=== PATIENT | female | born 1975 | race Caucasian/White ===

== ENCOUNTER 2017-12-05 09:30 | Emergency (ER) | payer MEDICAID ==
[~2017-12-05] VITALS: Ht 165.1 cm; Wt 83.2 kg
[2017-12-05 09:51] VITALS: BP 100/75
== END 2017-12-05 10:29 | disposition home or self-care (01) ==
LOC: ED 10:15
DX: F31.9 Bipolar disorder, unspecified (principal); Z76.0 Encounter for issue of repeat prescription
CPT/HCPCS: 99283

== ENCOUNTER 2018-01-07 16:13 | Emergency (ER) | payer MEDICAID ==
[~2018-01-07] VITALS: Ht 165.1 cm; Wt 80.0 kg
[2018-01-07] MEDS ORDERED: ONDANSETRON 2MG/ML, 2ML IVPush ONE (16:30)
[2018-01-07] MEDS ORDERED: SODIUM CHLORIDE 0.9% 1,000ML IVBOLUS ONE ×2 (16:30→17:00)
[2018-01-07 16:44] LABS: BASOPHILS # (AUTO) 0.05 x10^3/uL (0-0.1); BASOPHILS % (AUTO) 1 % (0-1); EOSINOPHILS # (AUTO) 0.23 x10^3/uL (0-0.4); EOSINOPHILS % (AUTO) 3 % (1-7); LYMPHOCYTES % (AUTO) 34 % (22-44); MD NO; MEAN CORPUSCULAR HEMOGLOBIN 30.8 pg (27.0-34.8); MEAN CORPUSCULAR HGB CONC 33.5 g/dL (32.4-35.8); MEAN CORPUSCULAR VOLUME 91.8 fL (80-100); MEAN PLATELET VOLUME 8.9 fL (7.4-10.4); MONOCYTES # (AUTO) 0.36 x10^3/uL (0.2-0.8); MONOCYTES % (AUTO) 5 % (2-9); NEUTROPHILS # (AUTO) 4.19 x10^3/uL (1.8-6.8); NEUTROPHILS % (AUTO) 57 % (42-75); PLATELET COUNT 305 x10^3/uL (130-400); RED CELL DISTRIBUTION WIDTH 15.2 % (9.6-15.2)
[2018-01-07 16:51] LABS: ALANINE AMINOTRANSFERASE 27 U/L (12-78); ALBUMIN 4.1 g/dL (3.4-5.0); ANION GAP 8 mmol/L (5-15); CHLORIDE 113 mmol/L (98-107)
[2018-01-07 16:56] LABS: ALKALINE PHOSPHATASE 92 U/L (45-117); BILIRUBIN,TOTAL 0.2 mg/dL (0.2-1.0); TOTAL PROTEIN 7.8 g/dL (6.4-8.2)
[2018-01-07] MEDS ORDERED: MAALOX/HYOSCYAMINE/LIDOCAINE 45 ML BTL PO ONE (17:00)
[2018-01-07] MEDS ORDERED: SODIUM CHLORIDE FLUSH 10ML SYR IVF ONE (17:00)
[2018-01-07] MEDS ORDERED: FAMOTIDINE 20 MG/2 ML IVP ONE (17:00)
[2018-01-07] MEDS ORDERED: METOCLOPRAMIDE 5 MG/ML, 2ML IVPush ONE (17:00)
[2018-01-07 17:06] LABS: MICROSCOPIC AUTO
[2018-01-07] MEDS ORDERED: METOCLOPRAMIDE 5 MG/ML, 2ML ONE (17:07)
[2018-01-07 17:10] LABS: CULTURE INDICATED? NO
[2018-01-07] MEDS ORDERED: DIPHENHYDRAMINE 50 MG/ML, 1ML IVPush ONE (17:30)
[2018-01-07] MEDS ORDERED: MAALOX/HYOSCYAMINE/LIDOCAINE 45 ML BTL ONE (17:56)
[2018-01-07] MEDS ORDERED: FAMOTIDINE 20 MG/2 ML ONE (17:56)
[2018-01-07 18:04] VITALS: BP 98/60
== END 2018-01-07 19:02 | disposition home or self-care (01) ==
LOC: ED 17:38
DX: R10.84 Generalized abdominal pain (principal); R11.2 Nausea with vomiting, unspecified
CPT/HCPCS: 36415; 74018; 76700; 80053; 81001; 83690; 84703; 85025; 96361; 96374; 96375; 99285; J2765; J7030; S0028

== ENCOUNTER 2018-08-18 11:32 | Emergency (ER) | payer MEDICAID ==
[~2018-08-18] VITALS: Ht 165.1 cm; Wt 84.0 kg
[2018-08-18 11:42] VITALS: BP 108/68
--- NOTE | 2018-08-18 11:51 | NUR ---
OUT OF KAREEM AND SHAYNA AND DOES NOT HAVE A PROVIDER
== END 2018-08-18 12:18 | disposition home or self-care (01) ==
LOC: ED 12:12
DX: F31.0 Bipolar disorder, current episode hypomanic (principal); Z76.0 Encounter for issue of repeat prescription; F17.200 Nicotine dependence, unspecified, uncomplicated
CPT/HCPCS: 99283

== ENCOUNTER 2018-09-06 18:43 | Emergency (ER) | payer MEDICAID ==
[~2018-09-06] VITALS: Ht 165.1 cm; Wt 83.4 kg
--- NOTE | 2018-09-06 18:59 | NUR ---
PT IN GOWN IN [facility]. PT ATTACHED TO VS MACHINES AND CHEMICAL ENGINEERING PROFESSOR. PT VSS. PT EDUCATED ON ER PROCESS AND VERBALIZES UNDERSTANDING. CALL LIGHT IS WITHIN REACH.
--- NOTE | 2018-09-06 19:09 | NUR ---
ANDREW AT BS.
[2018-09-06] MEDS ORDERED: ALBUTEROL/IPRATROPIUM 2.5MG/0.5MG, 3 ML ONE (19:26)
[2018-09-06 19:28] LABS: BASOPHILS # (AUTO) 0.09 x10^3/uL (0-0.1); BASOPHILS % (AUTO) 1 % (0-1); EOSINOPHILS % (AUTO) 2 % (1-7); LYMPHOCYTES # (AUTO) 3.56 x10^3/uL (1-3.4); LYMPHOCYTES % (AUTO) 37 % (22-44); MD NO; MEAN CORPUSCULAR HEMOGLOBIN 28.8 pg (27.0-34.8); MEAN CORPUSCULAR HGB CONC 32.8 g/dL (32.4-35.8); MEAN CORPUSCULAR VOLUME 87.8 fL (80-100); MEAN PLATELET VOLUME 8.5 fL (7.4-10.4); MONOCYTES # (AUTO) 0.59 x10^3/uL (0.2-0.8); MONOCYTES % (AUTO) 6 % (2-9); NEUTROPHILS # (AUTO) 5.19 x10^3/uL (1.8-6.8); NEUTROPHILS % (AUTO) 54 % (42-75); PLATELET COUNT 342 x10^3/uL (130-400); RED BLOOD COUNT 4.28 x10^6/uL (3.82-5.3); RED CELL DISTRIBUTION WIDTH 15.5 % (9.6-15.2)
[2018-09-06] MEDS ORDERED: ALBUTEROL/IPRATROPIUM 2.5MG/0.5MG, 3 ML NPPB ONE (19:30)
[2018-09-06 19:40] LABS: ALANINE AMINOTRANSFERASE 26 U/L (12-78); ALBUMIN 4.1 g/dL (3.4-5.0); ANION GAP 9 mmol/L (5-15); CALCIUM 8.8 mg/dL (8.5-10.1); CHLORIDE 112 mmol/L (98-107); CREATININE 0.97 mg/dL (0.55-1.02)
[2018-09-06 19:44] LABS: ALKALINE PHOSPHATASE 102 U/L (45-117); TOTAL PROTEIN 7.2 g/dL (6.4-8.2); TROPONIN I < 0.015 ng/mL (0.000-0.045)
[2018-09-06 19:50] LABS: BILIRUBIN,TOTAL < 0.1 mg/dL (0.2-1.0)
--- NOTE | 2018-09-06 20:13 | NUR ---
PT D/C WITH D/C SUMMARY AND SCRIPTS. ALL QUESTIONS ANSWERED. PT AMBULATES TO REGISTRATION DESK WITH STEADY GAIT FOR D/C HOME. PT DENIES ANY OTHER NEEDS PERTAINING TO THIS VISIT.
[2018-09-06 20:15] VITALS: BP 140/88
== END 2018-09-06 20:16 | disposition home or self-care (01) ==
LOC: ED 18:58
DX: J20.9 Acute bronchitis, unspecified (principal); F17.210 Nicotine dependence, cigarettes, uncomplicated; F31.9 Bipolar disorder, unspecified
CPT/HCPCS: 36415; 71045; 80053; 84484; 84703; 85025; 93005; 94640; 99284; 99406; J7620

== ENCOUNTER 2019-06-24 16:04 | Emergency (ER) | payer MEDICAID, OTHER ==
[~2019-06-24] VITALS: Ht 165.1 cm; Wt 76.0 kg
--- NOTE | 2019-06-24 16:32 | NUR ---
BRICK SETTER OPERATOR NOTIFIED ABOUT POSSIBLE PRECAUTIONS
--- NOTE | 2019-06-24 17:44 | NUR ---
STEREOPLOTTER OPERATOR: PT TO ROOM FROM ANOTHER PTS ROOM. GAIT STEADY
--- NOTE | 2019-06-24 18:03 | NUR ---
pt placed on monitor, md at bedside. call light within reach.
[2019-06-24 18:30] LABS: RAPID INFLUENZA A POSITIVE (Negative); RAPID INFLUENZA B Negative (Negative)
[2019-06-24 18:54] VITALS: BP 127/65
== END 2019-06-24 18:57 | disposition home or self-care (01) ==
LOC: ED 18:51
DX: J10.1 Influenza due to other identified influenza virus with other respiratory manifestations (principal); F17.200 Nicotine dependence, unspecified, uncomplicated
CPT/HCPCS: 71045; 87400; 99283

== ENCOUNTER 2019-11-05 05:31 | Emergency (ER) | payer OTHER ==
[~2019-11-05] VITALS: Ht 165.1 cm; Wt 85.0 kg
--- NOTE | 2019-11-05 05:45 | NUR ---
LATE ENTRY: FIRST CONTACT WITH PT. PT CHANGED INTO GOWN, SITTING ON GURNEY, GROANING AND YELLING OUT, UNABLE TO STAY STILL D/T PAIN AND DISCOMFORT IN ABDOMINAL REGION. STATES PAIN IS ACROSS THE LOWER REGIONS. PT CAME IN D/T PAIN BECOMING UNBEARABLE AND REPORTS VOMITTING X2DAYS. PT REPORTS STILL PASSING GAS AND HAVING BOWEL MOVEMENTS, PT WILL NOT LET RN PALPATE ABDOMEN, NO BLOOD NOTED IN STOOL OR VOMIT ACCORDING TO PT. PT DENIES ANY ABDOMINAL TRAUMA. WCTM. PLACED ON BP/SPO2/ECG MONITORING. PT AT . Addendum: 11/05/19 at 0641 by NICOLE PAIN IN EPIGASTIC, SUBSTERNAL REGION. NOT LOWER ABDOMEN
[2019-11-05] MEDS ORDERED: ARIP20TA5 PO (05:46)
[2019-11-05] MEDS ORDERED: TRAZ50TA66 PO (05:46)
[2019-11-05] MEDS ORDERED: TOPI200T6 PO (05:46)
[2019-11-05] MEDS ORDERED: ARIP5TAB13 PO (05:46)
[2019-11-05] MEDS ORDERED: MAALOX/HYOSCYAMINE/LIDOCAINE 45 ML BTL PO ONE (06:00)
[2019-11-05] MEDS ORDERED: SODIUM CHLORIDE FLUSH 10ML SYR IVF ONE (06:00)
[2019-11-05] MEDS ORDERED: MORPHINE SULFATE 4 MG/ML, 1ML IVPush PRN (06:00)
[2019-11-05] MEDS ORDERED: ONDANSETRON 2MG/ML, 2ML ONE (06:00)
[2019-11-05] MEDS ORDERED: ONDANSETRON 2MG/ML, 2ML IVPush ONE (06:00)
[2019-11-05 06:04] LABS: BASOPHILS # (AUTO) 0.06 x10^3/uL (0-0.1); BASOPHILS % (AUTO) 1 % (0-1); EOSINOPHILS # (AUTO) 0.14 x10^3/uL (0-0.4); EOSINOPHILS % (AUTO) 1 % (1-7); LYMPHOCYTES # (AUTO) 2.28 x10^3/uL (1-3.4); LYMPHOCYTES % (AUTO) 20 % (22-44); MD NO; MEAN CORPUSCULAR HEMOGLOBIN 24.1 pg (27.0-34.8); MEAN CORPUSCULAR HGB CONC 31.2 g/dL (32.4-35.8); MEAN CORPUSCULAR VOLUME 77.4 fL (80-100); MEAN PLATELET VOLUME 8.8 fL (7.4-10.4); MONOCYTES # (AUTO) 0.49 x10^3/uL (0.2-0.8); MONOCYTES % (AUTO) 4 % (2-9); NEUTROPHILS # (AUTO) 8.25 x10^3/uL (1.8-6.8); NEUTROPHILS % (AUTO) 74 % (42-75); PLATELET COUNT 405 x10^3/uL (130-400); RED BLOOD COUNT 5.15 x10^6/uL (3.82-5.3); RED CELL DISTRIBUTION WIDTH 18.3 % (9.6-15.2)
[2019-11-05 06:10] LABS: ALBUMIN 3.9 g/dL (3.4-5.0); ANION GAP 9 mmol/L (5-15); CHLORIDE 109 mmol/L (98-107)
[2019-11-05 06:16] LABS: ALANINE AMINOTRANSFERASE 29 U/L (12-78); ALKALINE PHOSPHATASE 107 U/L (45-117); BILIRUBIN,TOTAL 0.3 mg/dL (0.2-1.0); CREATININE 0.96 mg/dL (0.55-1.02); TOTAL PROTEIN 8.2 g/dL (6.4-8.2)
[2019-11-05] MEDS ORDERED: MAALOX/HYOSCYAMINE/LIDOCAINE 45 ML BTL ONE (06:24)
--- NOTE | 2019-11-05 06:42 | NUR ---
PT RESTING IN [facility], MEDICATED PER JUL, PAIN DECREASED ACCORDING TO PT, EKG OBTAINED, WCTM. WAITING FOR ADDITIONAL TESTING.
[2019-11-05] MEDS ORDERED: SODIUM CHLORIDE 0.9% 1,000ML IVBOLUS ONE (07:00)
--- NOTE | 2019-11-05 07:01 | NUR ---
Bedside report from Aj RASCON
[2019-11-05] MEDS ORDERED: MORPHINE SULFATE 4 MG/ML, 1ML ONE (07:04)
--- NOTE | 2019-11-05 07:08 | NUR ---
BS report to niraj RASCON pt care transferred at this time.
[2019-11-05 07:14] VITALS: BP 153/80
--- NOTE | 2019-11-05 07:14 | NUR ---
STEADY AMBULATION TO BATHROOM, MEDICATED FOR PAIN. BACK RESTING IN BED.
[2019-11-05] MEDS ORDERED: FAMOTIDINE 20 MG/2 ML IVPush ONE (07:30)
[2019-11-05 07:37] LABS: MICROSCOPIC INDICATED
[2019-11-05 07:48] LABS: HCG UR SG 1.015 (1.003-1.030)
[2019-11-05] MEDS ORDERED: FAMOTIDINE 20 MG/2 ML ONE (07:50)
--- NOTE | 2019-11-05 08:02 | NUR ---
KATHY ruvalcaba AT BEDSIDE TO DISCUSS POC, DISCHARGE INSTRUCTIONS REVIEWED.
== END 2019-11-05 08:41 | disposition home or self-care (01) ==
LOC: ED 06:11
DX: K29.00 Acute gastritis without bleeding (principal); R10.13 Epigastric pain; R11.2 Nausea with vomiting, unspecified; R94.31 Abnormal electrocardiogram [ECG] [EKG]; F17.200 Nicotine dependence, unspecified, uncomplicated; Z90.89 Acquired absence of other organs
CPT/HCPCS: 36415; 76700; 80053; 81001; 81025; 83690; 85025; 93005; 96361; 96374; 96375; 99285; J2270; J2405; J3490; J7030

== ENCOUNTER 2019-11-07 11:57 | Emergency (ER) | payer OTHER ==
[~2019-11-07] VITALS: Ht 165.1 cm; Wt 83.8 kg
[~2019-11-07 11:57] MED LIST: ARIP20TA5 PO; ARIP5TAB13 PO; TOPI200T6 PO; TRAZ50TA66 PO
[2019-11-07] MEDS ORDERED: SODIUM CHLORIDE FLUSH 10ML SYR IVF ONE (13:00)
[2019-11-07] MEDS ORDERED: FAMOTIDINE 20 MG/2 ML IV ONE (13:00)
[2019-11-07] MEDS ORDERED: ONDANSETRON 2MG/ML, 2ML IVPush ONE (13:00)
[2019-11-07] MEDS ORDERED: ONDANSETRON 2MG/ML, 2ML ONE (13:07)
[2019-11-07] MEDS ORDERED: FAMOTIDINE 20 MG/2 ML ONE (13:07)
[2019-11-07 13:47] LABS: ALANINE AMINOTRANSFERASE 28 U/L (12-78); ALBUMIN 3.4 g/dL (3.4-5.0); ANION GAP 9 mmol/L (5-15); CALCIUM 9.1 mg/dL (8.5-10.1); CHLORIDE 104 mmol/L (98-107); CREATININE 0.84 mg/dL (0.55-1.02)
[2019-11-07 13:54] LABS: ALKALINE PHOSPHATASE 92 U/L (45-117); BILIRUBIN,TOTAL 0.3 mg/dL (0.2-1.0); TOTAL PROTEIN 7.7 g/dL (6.4-8.2)
[2019-11-07 14:03] VITALS: BP 122/73
[2019-11-07 14:04] LABS: MEAN CORPUSCULAR HEMOGLOBIN 24.4 pg (27.0-34.8); MEAN CORPUSCULAR HGB CONC 31.8 g/dL (32.4-35.8); MEAN CORPUSCULAR VOLUME 76.6 fL (80-100); MEAN PLATELET VOLUME 8.8 fL (7.4-10.4); PLATELET COUNT 346 x10^3/uL (130-400); RED BLOOD COUNT 4.93 x10^6/uL (3.82-5.3); RED CELL DISTRIBUTION WIDTH 18.5 % (9.6-15.2)
[2019-11-07 14:27] LABS: BASOPHILS # (AUTO) 0.04 x10^3/uL (0-0.1); BASOPHILS % (AUTO) 1 % (0-1); EOSINOPHILS # (AUTO) 0.12 x10^3/uL (0-0.4); EOSINOPHILS % (AUTO) 2 % (1-7); LYMPHOCYTES % (AUTO) 36 % (22-44); MD SCAN; MONOCYTES # (AUTO) 0.98 x10^3/uL (0.2-0.8); MONOCYTES % (AUTO) 13 % (2-9); NEUTROPHILS # (AUTO) 3.63 x10^3/uL (1.8-6.8); NEUTROPHILS % (AUTO) 49 % (42-75)
[2019-11-07] MEDS ORDERED: OMNIPAQUE 350 MG/ML, 100ML BOTTLE ONE (14:40)
--- NOTE | 2019-11-07 15:03 | NUR ---
BREAK RN: LYRIC COLLECTED AND SENT
[2019-11-07 15:13] LABS: MICROSCOPIC AUTO
[2019-11-07] MEDS ORDERED: DOXYCYCLINE 100MG TABLET PO ONE (15:30)
== END 2019-11-07 15:51 | disposition home or self-care (01) ==
LOC: ED 12:22
DX: J18.1 Lobar pneumonia, unspecified organism (principal); Z20.828 Contact with and (suspected) exposure to other viral communicable diseases; K59.00 Constipation, unspecified; E87.6 Hypokalemia
CPT/HCPCS: 36415; 74177; 80053; 81001; 83690; 85025; 87086; 96374; 96375; 99285; J2405; J3490; Q9967; U0001

== ENCOUNTER 2019-11-10 19:16 | Emergency (ER) | payer OTHER ==
[~2019-11-10] VITALS: Ht 165.1 cm; Wt 83.1 kg
--- NOTE | 2019-11-10 19:40 | NUR ---
THIS IS A 44 YO FEMALE COMING IN WITH C/O CONSTIPATION, LAST BM STATED 11 DAYS AGO. DIFFUSE SHARP ABD PAIN RATED 9/10, TENDER TO PALPATION. PATIENT WAS SEEN HERE 11/06 WITH C/O VOMITING, SENT HOME WITH ORDERS TO TAKE MIRALAX TO HELP WITH CONSTIPATION. NO SUCCESS AT HOME WITH MIRALAX. PATIENT STATES VOMITING SUBSIDED SINCE LAST TIME, AND CAME BACK TODAY. ALSO STATES "I WAS DIAGNOSED WITH PNEUMONIA AND HAVE BEEN ON ANTIBIOTICS SINCE . MY COVID TEST WAS NEGATIVE". SPO2 AND BP MONITORING IN PLACE, VSS, SOME DISTRESS NOTED R/T ABD PAIN AND CONSTIPATION. CALL LIGHT IN REACH
[2019-11-10] MEDS ORDERED: METOCLOPRAMIDE 5 MG/ML, 2ML ONE (19:54)
--- NOTE | 2019-11-10 20:05 | NUR ---
PIV PLACED, MEDICATED PER EMAR, IVF RUNNING. PATIENT TAKEN TO XRAY
[2019-11-10 20:34] LABS: BASOPHILS # (AUTO) 0.07 x10^3/uL (0-0.1); BASOPHILS % (AUTO) 1 % (0-1); EOSINOPHILS # (AUTO) 0.25 x10^3/uL (0-0.4); EOSINOPHILS % (AUTO) 2 % (1-7); LYMPHOCYTES # (AUTO) 3.41 x10^3/uL (1-3.4); LYMPHOCYTES % (AUTO) 30 % (22-44); MD NO; MEAN CORPUSCULAR HEMOGLOBIN 24.2 pg (27.0-34.8); MEAN CORPUSCULAR HGB CONC 31.4 g/dL (32.4-35.8); MEAN CORPUSCULAR VOLUME 76.9 fL (80-100); MEAN PLATELET VOLUME 8.8 fL (7.4-10.4); MONOCYTES # (AUTO) 0.97 x10^3/uL (0.2-0.8); MONOCYTES % (AUTO) 8 % (2-9); NEUTROPHILS # (AUTO) 6.79 x10^3/uL (1.8-6.8); NEUTROPHILS % (AUTO) 59 % (42-75); PLATELET COUNT 370 x10^3/uL (130-400); RED BLOOD COUNT 5.04 x10^6/uL (3.82-5.3); RED CELL DISTRIBUTION WIDTH 18.7 % (9.6-15.2)
[2019-11-10 20:36] LABS: ALANINE AMINOTRANSFERASE 32 U/L (12-78); ALBUMIN 3.4 g/dL (3.4-5.0); ANION GAP 9 mmol/L (5-15); CALCIUM 9.4 mg/dL (8.5-10.1); CHLORIDE 106 mmol/L (98-107)
[2019-11-10 20:41] LABS: ALKALINE PHOSPHATASE 93 U/L (45-117); BILIRUBIN,TOTAL 0.3 mg/dL (0.2-1.0); CREATININE 1.04 mg/dL (0.55-1.02); TOTAL PROTEIN 7.6 g/dL (6.4-8.2)
--- NOTE | 2019-11-10 20:45 | NUR ---
PT PROVIDED ADDITIONAL WARM BLANKET, UPDATED ON POC. MONITORING IN PLACE, CALL LIGHT WITHIN REACH.
[2019-11-10] MEDS ORDERED: METOCLOPRAMIDE 5 MG/ML, 2ML IVPush ONE (21:00)
[2019-11-10] MEDS ORDERED: SODIUM CHLORIDE 0.9% 1,000ML IVBOLUS ONE (21:00)
[2019-11-10] MEDS ORDERED: SODIUM CHLORIDE FLUSH 10ML SYR IVF ONE (21:00)
--- NOTE | 2019-11-10 21:08 | NUR ---
PATIENT AMBULATORY WITH STEADY GAIT TO LYRIC CLARKE CUP PROVIDED
[2019-11-10 21:31] LABS: MICROSCOPIC NOT IND
[2019-11-10 21:53] VITALS: BP 123/66
== END 2019-11-10 23:39 | disposition home or self-care (01) ==
LOC: ED 21:41
DX: R10.30 Lower abdominal pain, unspecified (principal); R11.2 Nausea with vomiting, unspecified; K56.7 Ileus, unspecified
CPT/HCPCS: 36415; 74022; 80053; 81003; 83690; 84703; 85025; 96361; 96374; 99284; J2765; J7030

== ENCOUNTER 2020-06-05 14:53 | Emergency (ER) | payer SELFPAY ==
[~2020-06-05] VITALS: Ht 165.1 cm; Wt 83.2 kg
--- NOTE | 2020-06-05 15:32 | NUR ---
DR GROSS AT BS
[2020-06-05] MEDS ORDERED: MAALOX/HYOSCYAMINE/LIDOCAINE 45 ML BTL ONE (15:35)
--- NOTE | 2020-06-05 15:42 | NUR ---
PT C./O EPIGASTRIC PAIN 11/25./ NS BOLUS INITIATED, IV SITE PATENT; GI COCKTAIL GIVEN. LAB AT BS.
[2020-06-05] MEDS ORDERED: ONDANSETRON 2MG/ML, 2ML ONE ×2 (15:48→17:31)
[2020-06-05] MEDS ORDERED: FAMOTIDINE 20 MG/2 ML ONE (15:48)
[2020-06-05 15:54] LABS: BASOPHILS % (AUTO) 1 % (0-1); EOSINOPHILS % (AUTO) 1 % (1-7); LYMPHOCYTES % (AUTO) 28 % (22-44); MEAN CORPUSCULAR HEMOGLOBIN 25.1 pg (27.0-34.8); MEAN CORPUSCULAR HGB CONC 32.2 g/dL (32.4-35.8); MEAN PLATELET VOLUME 8.1 fL (7.4-10.4); MONOCYTES % (AUTO) 6 % (2-9); NEUTROPHILS % (AUTO) 65 % (42-75); PLATELET COUNT 402 x10^3/uL (130-400); RED BLOOD COUNT 4.91 x10^6/uL (3.82-5.3); RED CELL DISTRIBUTION WIDTH 17.5 % (9.6-15.2)
--- NOTE | 2020-06-05 15:54 | NUR ---
ZOFRAN AND PEPCID GFIVEN PER EMAR.
[2020-06-05] MEDS ORDERED: ARIP30TA4 PO (15:56)
[2020-06-05 15:57] LABS: MD NO
[2020-06-05] MEDS ORDERED: FAMOTIDINE 20 MG/2 ML IVPush ONE (16:00)
[2020-06-05] MEDS ORDERED: SODIUM CHLORIDE 0.9% 1,000ML IVBOLUS ONE (16:00)
[2020-06-05] MEDS ORDERED: SODIUM CHLORIDE FLUSH 10ML SYR IVF ONE (16:00)
[2020-06-05] MEDS ORDERED: ONDANSETRON 2MG/ML, 2ML IVPush ONE ×2 (16:00→17:30)
[2020-06-05] MEDS ORDERED: MAALOX/HYOSCYAMINE/LIDOCAINE 45 ML BTL PO ONE (16:00)
[2020-06-05 16:05] LABS: ALANINE AMINOTRANSFERASE 30 U/L (12-78); ANION GAP 8 mmol/L (5-15); CALCIUM 9.6 mg/dL (8.5-10.1); CHLORIDE 106 mmol/L (98-107); CREATININE 1.06 mg/dL (0.55-1.02)
[2020-06-05 16:09] LABS: ALKALINE PHOSPHATASE 126 U/L (45-117); BILIRUBIN,TOTAL 0.3 mg/dL (0.2-1.0); TOTAL PROTEIN 8.2 g/dL (6.4-8.2)
--- NOTE | 2020-06-05 16:22 | NUR ---
REPORTS NO PAIN RELIEF, YET.
--- NOTE | 2020-06-05 16:22 | NUR ---
PT NOTIFIED OF NEED FOR URINE SPECIMEN; UNDERSTANDING VERBALIZED.
--- NOTE | 2020-06-05 16:49 | NUR ---
RAGISTRATION AT BS
--- NOTE | 2020-06-05 17:03 | NUR ---
NS BOLUS INFUSED. URGED PT TO PROVIDE URINE SPECIMEN. PT STATES "I CAN'T MOVE. IT HURTS SO BAD!" PT CURRENTLY IN LT LATERAL POSITION
[2020-06-05] MEDS ORDERED: MORPHINE SULFATE 4 MG/ML, 1ML IVPush PRN (17:30)
[2020-06-05] MEDS ORDERED: MORPHINE SULFATE 4 MG/ML, 1ML ONE (17:31)
--- NOTE | 2020-06-05 17:33 | NUR ---
DR GROSS NOTIFIED OF URINE SPECIMEN STATUS. PLAN: GIVE ZOFRAN AND MORPHINE THEN HAVE PT ATTEMPT VOIDED SPECIMEN.
--- NOTE | 2020-06-05 17:35 | NUR ---
PT NOW SITTING ON END OF [facility]
--- NOTE | 2020-06-05 17:39 | NUR ---
ZOFRAN AND MORPHINE GIVEN PER EMAR.
--- NOTE | 2020-06-05 17:45 | NUR ---
AMBULATORY TO [facility], ACCOMPANIED BY SPOUSE
--- NOTE | 2020-06-05 18:08 | NUR ---
PT ENDORSED TO JHON MILLER RN. PT AWAITING CT
[2020-06-05 18:19] LABS: MICROSCOPIC INDICATED
--- NOTE | 2020-06-05 18:46 | NUR ---
RETURNED FROM CT
[2020-06-05] MEDS ORDERED: OMNIPAQUE 350 MG/ML, 100ML BOTTLE ONE (18:51)
[2020-06-05 19:58] VITALS: BP 126/73
--- NOTE | 2020-06-05 19:59 | NUR ---
CONFECTIONERY DROPS MACHINE OPERATOR: PATIENT CLEARED FOR DISCHARGE. NO NOTED ADDITIONAL NEEDS. PATIENT VERBALIZED UNDERSTANDING OF SELF CARE AND FOLLOW UP CARE AT HOME. AMBULATORY TO DISCHARGE DESK WTIHOUT COMPLICATIONS WITH BELONGINGS.
== END 2020-06-05 20:01 | disposition home or self-care (01) ==
LOC: ED 16:48
DX: K59.00 Constipation, unspecified (principal); R11.2 Nausea with vomiting, unspecified; R55 Syncope and collapse; R10.9 Unspecified abdominal pain
CPT/HCPCS: 36415; 74177; 80053; 81001; 83690; 84703; 85025; 96361; 96374; 96375; 96376; 99285; J2270; J2405; J7030; Q9967